=== PATIENT | male | born 1990 | race Caucasian/White ===

== ENCOUNTER → 2020-09-09 | Emergency (ER) | payer MEDICAID ==
[~2020-09-09] VITALS: Ht 180.3 cm; Wt 86.2 kg
[~2020-09-09] MED LIST: IV NS 0.9% 1,000 ML BAG IV ONE; MECLIZINE HCL 25 MG TABLET ONE; MECLIZINE HCL 25 MG TABLET PO ONE; ONDANSETRON HCL/PF 4 MG/2 ML VIAL IVP ONE; ONDANSETRON HCL/PF 4 MG/2 ML VIAL ONE
--- NOTE | 2020-09-09 23:20 | NUR ---
PATIENT CAME TO ER BED 9 C/O DIZZINESS WHILE DRIVING S/P TAKING 2 PILLS OF IBUPROFEN. PATIENT STATES THAT HE HAD 2 SIPS OF WINE TONIGHT. PATIENT STATES HE FEELS BLOATED. PATIENT IS AAOX4. NO SOB .BREATHING EVENLY AND UNLABORED ON ROOM AIR. CONNECTED TO THE MONITOR.
--- NOTE | 2020-09-09 23:21 | NUR ---
PATIENT STATES THAT HE HAS A "ROOM SPINNING" SENSATION.
--- NOTE | 2020-09-09 23:40 | NUR ---
IV INITIATED RAC 18G. LABS DRAWN FROM SITE. 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 IV INTACT AND PATENT, WILL MEDICATE PER MD ORDER
[2020-09-09 23:45] LABS: BASOPHILS # (AUTO) 0.1 /CMM (0.0-0.2); BASOPHILS % (AUTO) 0.7 % (0.0-2.0); EOSINOPHILS % (AUTO) 0.4 % (0.0-6.0); HEMATOCRIT 46 % (39-51); HEMOGLOBIN 15.6 g/dL (13.5-17.5); LYMPHOCYTES % (AUTO) 13.4 % (20.0-44.0); MEAN CORPUSCULAR HGB CONC 34 g/dl (31.0-36.0); MEAN CORPUSCULAR VOLUME 92 fL (80-96); MONOCYTES % (AUTO) 13.9 % (2.0-12.0); NEUTROPHILS # (AUTO) 5.4 /CMM (1.8-8.9); NEUTROPHILS % (AUTO) 71.6 % (43.0-81.0); PLATELET COUNT (AUTO) 196 /CMM (150-450); RED BLOOD CELL COUNT(AUTO) 5.02 MIL/uL (4.5-6.0); WHITE BLOOD COUNT (AUTO) 7.5 K/uL (4.3-11.0)
[2020-09-09 23:47] VITALS: BP 138/93
[2020-09-10 00:10] LABS: ALBUMIN 3.9 g/dL (3.4-5.0); BILIRUBIN,DIRECT 0.1 mg/dL (0.0-0.2); BILIRUBIN,TOTAL 0.3 mg/dL (0.2-1.0); CALCIUM, SERUM 8.7 mg/dL (8.5-10.1); POTASSIUM 3.4 mmol/L (3.5-5.1); TOTAL PROTEIN, SERUM 7.6 g/dL (6.4-8.2)
== END | disposition home or self-care (01) ==
LOC: ER 23:05
DX: R42 Dizziness and giddiness (principal); F45.8 Other somatoform disorders
CPT/HCPCS: 36415; 80048; 80076; 83690; 85025; 93005; 96361; 96374; 99284; J2405; J7030; J8597